=== PATIENT | male | born 1960 | race Caucasian/White ===

== ENCOUNTER 2017-11-26 06:12 | Day surgery (SDC) | payer OTHER ==
[~2017-11-26] VITALS: Ht 172.7 cm; Wt 70.5 kg
[~2017-11-26 06:12] MED LIST: ACET600C5 PO; BUSP10TA23 PO; CARB-224 AU; CLON.5 PO; CLON1 PO; CLOZ100T29 PO; DOCU250C91 PO; FENO160T11 PO; FLUT16H NASAL; LITH300C3 PO; LORA10TA7 PO; PROP20TA18 PO; RINGERS SOLUTION,LACTATED 1,000 ML IV ONE; TAMS0.4C32 PO
[2017-11-26] MEDS ORDERED: RINGERS SOLUTION,LACTATED 1,000 ML IV ONE (06:28)
[2017-11-26] MEDS ORDERED: OXYMETAZOLINE HCL 0.05% 15 ML NASAL SPRAY NASAL ONE (06:53)
[2017-11-26 06:57] LABS: BASOPHILS % (AUTO) 0.5 % (0.0-2.0); EOSINOPHILS % (AUTO) 0.3 % (1.0-6.0); HEMATOCRIT 40.5 % (41-53); HEMOGLOBIN 13.7 g/dL (13.5-17.5); LYMPHOCYTES # (AUTO) 1.4 K/uL (1.0-4.8); LYMPHOCYTES % (AUTO) 20.4 % (22.0-44.0); MEAN CORPUSCULAR HEMOGLOBIN 29.6 pg (26.0-34.0); MEAN CORPUSCULAR HGB CONC 33.9 G/dL (31.0-37.0); MEAN CORPUSCULAR VOLUME 88 fL (80-100); MONOCYTES # (AUTO) 0.4 K/uL (0.1-1.0); MONOCYTES % (AUTO) 6.3 % (2.0-9.0); NEUTROPHILS % (AUTO) 72.5 % (40.0-70.0); PLATELET COUNT (AUTO) 260 K/uL (150-450); RED BLOOD CELL COUNT(AUTO) 4.63 MIL/uL (4.50-5.90); RED CELL DISTRIBUTION WIDTH 13.6 % (11.5-14.5)
[2017-11-26 07:07] LABS: CALCIUM, TOTAL 9.1 mg/dL (8.8-10.5); CREATININE 1.26 mg/dL (0.60-1.30)
[2017-11-26 07:08] LABS: PROTHROMBIN TIME 10.7 SEC (9.4-11.6)
[2017-11-26 07:13] LABS: ALBUMIN 3.6 g/dL (3.4-5.0); BILIRUBIN,TOTAL 0.2 mg/dL (0.1-1.0); TOTAL PROTEIN, SERUM 6.3 g/dL (6.4-8.2)
[2017-11-26] MEDS ORDERED: AMPICILLIN SODIUM 1 GM/VIAL ONE (08:19)
[2017-11-26] MEDS ORDERED: SODIUM CHLORIDE 0.9% 50 ML ONE (08:20)
[2017-11-26] MEDS ORDERED: FentaNYL CITRATE-PF 100 MCG/2 ML VIAL IVP PRN (09:00)
[2017-11-26] MEDS ORDERED: ONDANSETRON HCL 4 MG/2 ML VIAL IVP ONE (12:00)
[2017-11-26] MEDS ORDERED: SUCCINYLCHOLINE CHLORIDE 20 MG/ML 10 ML VIAL IVP ONE (12:00)
[2017-11-26] MEDS ORDERED: PROPOFOL 1% 20 ML VIAL IVP ONE (12:00)
[2017-11-26] MEDS ORDERED: DEXAMETHASONE SOD PHOS 4 MG/ML VIAL IVP ONE (12:00)
[2017-11-26] MEDS ORDERED: LIDOCAINE HCL/PF 1% 2 ML VIAL INJ ONE (12:00)
== END 2017-11-26 12:40 | disposition home or self-care (01) ==
LOC: SURGERY 06:12
PROVIDERS: ATTEND Dentist General Practice
DX: K05.30 Chronic periodontitis, unspecified (principal); F72 Severe intellectual disabilities; E78.5 Hyperlipidemia, unspecified; F84.0 Autistic disorder; I10 Essential (primary) hypertension; N40.0 Benign prostatic hyperplasia without lower urinary tract symptoms; F42.8 Other obsessive-compulsive disorder; Z79.01 Long term (current) use of anticoagulants; Z88.8 Allergy status to other drugs, medicaments and biological substances; Z79.899 Other long term (current) drug therapy
CPT/HCPCS: 36415; 41899; 71045; 80053; 85025; 85610; 85730; 93005; J0290; J0330; J1100; J2405; J2704; J3490; J7050; J7120

== ENCOUNTER 2019-01-13 07:01 | Day surgery (SDC) | payer OTHER, MEDICARE, MEDICAID ==
[~2019-01-13] VITALS: Ht 172.7 cm; Wt 68.2 kg
[~2019-01-13 07:01] MED LIST changes: +MULT-1203 PO
[2019-01-13] MEDS ORDERED: LIDOCAINE/PF 2% 5 ML VIAL IM ONE (07:02)
[2019-01-13] MEDS ORDERED: FentaNYL CITRATE-PF 100 MCG/2 ML VIAL IVP ONE (07:02)
[2019-01-13] MEDS ORDERED: AMPICILLIN SODIUM 1 GM/VIAL ONE (09:23)
[2019-01-13] MEDS ORDERED: MIDAZOLAM HCL 5 MG/ML VIAL ONE (11:16)
== END 2019-01-13 15:47 | disposition home or self-care (01) ==
LOC: SURGERY 07:01
PROVIDERS: ATTEND Dentist General Practice
DX: K05.30 Chronic periodontitis, unspecified (principal); K03.6 Deposits [accretions] on teeth; E78.5 Hyperlipidemia, unspecified; F41.9 Anxiety disorder, unspecified; G62.9 Polyneuropathy, unspecified; F42.9 Obsessive-compulsive disorder, unspecified; Z79.899 Other long term (current) drug therapy; Z98.890 Other specified postprocedural states
CPT/HCPCS: 41899; J0290; J2250; J3010; J3490; J7120